=== PATIENT | female | born 1995 | race African-American/Black ===

== ENCOUNTER 2017-02-27 12:37 | Emergency (ER) | payer OTHER ==
[2017-02-27 13:54] LABS: #Basophils 0.1 thou/uL (0.0-0.2); #Eosinphils 0.1 thou/uL (0.0-0.7); #Lymphocytes 2.1 thou/uL (1.20-3.40); #Monocytes 0.7 thou/uL (0.11-0.59); #Neutrophils 8.8 thou/uL (1.40-6.50); %Basophils 0.7 % (0.0-1.0); %Eosinophils 0.9 % (0.0-10.0); %Lymphocytes 17.9 % (28.0-48.0); %Monocytes 6.1 % (0.0-4.0); Hematocrit 36.1 % (36.0-47.0); Mean Platelet Volume 6.6 fL (7.4-10.4); Red Blood Cell (RBC) Count 3.35 mill/uL (4.00-5.20); White Blood Cell (WBC) Count 11.8 thou/uL (4.8-10.8)
--- NOTE | 2017-02-27 16:02 | ULT ---
PELVIC ULTRASOUND: DATE: 02/27/17. HISTORY: Vaginal bleeding. FINDINGS: There is a single intrauterine gestation in cephalic presentation. Cardiac Doppler demonstrates feta l heart tones with a heart rate of 145 b.p.m. The placenta is located anteriorly. There is no evidence of placenta previa. Subjectively, there is a normal amount of amniotic fluid. Cervical le ngth based on transabdominal imaging is 3.8 cm. measurements: Biparietal diameter 4.6 cm, 20 weeks Head circumference 17.36 cm, 19 weeks 6 days Abdominal circumference 15.74 cm, 20 weeks 6 days Femur length 2.96 cm, 19 weeks 1 day The estimated gestational age by ultrasound is 19 weeks 6 days with RAMAN on 07/18/17. Gestational age by the last menstrual period is 20 weeks and 2 days. The estimated weight by ultrasound is 329 gm (12 ounces). This represents 32nd percentile for weight. The cerebellum, visualized portions of the spine, 4-chamber heart, stomach, bilateral kidneys, and urinary bladder demonstrate a normal sonographic appearance. The cord insertion is difficult to adequately evaluate due to positioning on this examination. In addition, a 3-vessel cord is no t definitely delineated. No definite anomalies are seen. IMPRESSION: 1. Single intrauterine gestation in cephalic presentation with heart tones documented. Gestat ional age by ultrasound is 19 weeks and 6 days with estimated date of delivery on 07/18/17. 2. Estimated weight is 329 gm (12 oz). POS: [facility]
== END 2017-02-27 15:21 | disposition home or self-care (01) ==
LOC: EEVIPCON 12:37 → ERS 12:37
DX: O46.92 Antepartum hemorrhage, unspecified, second trimester (principal); Z3A.20 20 weeks gestation of pregnancy
CPT/HCPCS: 36415; 76805; 84702; 85025; 86850; 86900; 86901

== ENCOUNTER 2017-02-27 16:05 | Day surgery (SDC) | payer OTHER | END 2017-02-27 17:00 | disposition left against medical advice (07) | LOC: L&D/OP 16:05 | PROVIDERS: ATTEND Pediatrics Pediatric Nephrology | DX: O26.852 Spotting complicating pregnancy, second trimester (principal); Z91.038 Other insect allergy status; Z3A.20 20 weeks gestation of pregnancy | CPT/HCPCS: 36415; 76805; 84702; 85025; 86850; 86900; 86901 ==